=== PATIENT | male | born 1955 | race Caucasian/White ===

== ENCOUNTER 2022-06-29 13:53 | Outpatient (CLI) | payer MEDICARE, OTHER ==
--- NOTE | 2022-07-01 13:52 | CT Report ---
PROCEDURE: Low Dose Lung Cancer Screen INDICATIONS: CURRENT SMOKER TECHNIQUE: Noncontrast low-dose axial images were acquired from the pulmonary apices to the posterior costophren ic angles. Multiplanar MIP reformats were then reconstructed. For radiation dose reduction, the follo wing was used: automated exposure control, adjustment of mA and/or kV according to patient size. COMPARISON: None. FINDINGS: Image quality: Excellent. Lungs and pleura: 8 mm calcified nodule in the right lower lobe. Mediastinum: Heart size is normal. No pericardial effusion. No mediastinal adenopathy by size crit eria. Thoracic aorta and central pulmonary arteries are normal in size. Esophagus is normal in luis betsy. No hiatal hernia. The coronary arteries have atherosclerotic calcifications. Bones and chest wall: Remote left sixth and seventh ribs are fractured posterolaterally. No suspiciou s bony lesions. No vertebral body compression fractures. No axillary or supraclavicular adenopathy by size criteria. The thyroid is normal in size and there are no incidental findings. Abdomen: Visualized upper abdomen solid organs and bowel loops appear normal in the absence of contr ast. IMPRESSION: 1. No pulmonary nodules or masses. 2. Coronary artery disease. 3. Remote left sixth and seventh rib fractures posterolaterally. Lung RADS 1. No nodules or definitely benign nodules. Continue annual screening with low-dose chest C T. Reviewed by: Cliff Bryan on 07/01/2022 12:51 PM [facility] Approved by: Cliff Bryan on 07/01/2022 12:51 PM [facility] Station ID: [id number]
== END 2022-06-29 13:54 | disposition home or self-care (01) ==
LOC: DI 13:53
PROVIDERS: ATTEND Student in an Organized Health Care Education/Training Program
DX: Z12.2 Encounter for screening for malignant neoplasm of respiratory organs (principal); F17.210 Nicotine dependence, cigarettes, uncomplicated; I25.10 Atherosclerotic heart disease of native coronary artery without angina pectoris